=== PATIENT | male | born 1965 | race Caucasian/White ===

== ENCOUNTER 2018-06-16 09:57 | Emergency (ER) | payer BC, OTHER ==
[2018-06-16 10:14] VITALS: BP 140/94
--- NOTE | 2018-06-16 10:37 | EDM.PDOC ---
ED HPI GENERAL MEDICAL PROBLEM - General Chief Complaint: Genitourinary Problem Stated Complaint: HAD A TURP NOT [place] TO PEE Time Seen by Provider: 06/16/18 10:20 Source of Information: Reports: Patient, Provider History Limitations: Reports: No Limitations - History of Present Illness INITIAL COMMENTS - FREE TEXT/NARRATIVE: 53-year-old male who underwent a TURP procedure one week ago was doing well but after a brief episode of hematuria this morning he developed acute urinary retention and came in fairly uncomfortable. No fevers or chills, no nausea or vomiting. Onset: Sudden Duration: Hour(s): (Over the last few hours) Location: Reports: Abdomen - Related Data Allergies Allergy/AdvReac Type Severity Reaction Status Date / Time No Known Drug Allergies Allergy Unknown Cannot Verified 06/16/18 10:09 Remember Home Meds: Home Meds Albuterol Sulfate [Proair Hfa] 2 puff INH QID PRN 08/10/15 [History] Allopurinol [Zyloprim] 100 mg PO DAILY 08/10/15 [History] Cyclobenzaprine [Flexeril] 10 mg PO BEDTIME PRN 08/10/15 [History] Fluticasone Propionate [Flonase] 2 spray NS BID 08/10/15 [History] Hyoscyamine [Hyomax-SL] 0.125 mg SL Q4HR PRN 08/10/15 [History] Losartan [Cozaar] 50 mg PO DAILY 08/10/15 [History] Montelukast [Singulair] 10 mg PO QPM 08/10/15 [History] Nortriptyline HCl [Pamelor] 50 mg PO DAILY 08/10/15 [History] Simvastatin [Zocor] 40 mg PO BEDTIME 08/10/15 [History] Past Medical History HEENT History: Reports: Impaired Vision, Other (See Below) Other HEENT History: wears contacts Cardiovascular History: Reports: High Cholesterol, Hypertension Respiratory History: Reports: Asthma Genitourinary History: Reports: Prostate Disorder Musculoskeletal History: Reports: Gout - Infectious Disease History Infectious Disease History: Reports: Chicken Pox - Past Surgical History Head Surgeries/Procedures: Reports: None Respiratory Surgical History: Reports: None GI Surgical History: Reports: Cholecystectomy, Colonoscopy, EGD Male Surgical History: Reports: TURP-Transurethral Resection of Prostate Musculoskeletal Surgical History: Reports: None Social & Family History - Family History Family Medical History: Noncontributory - Tobacco Use Smoking Status *Q: Former Smoker Years of Tobacco use: 20 Packs/Tins Daily: 1 Used Tobacco, but Quit: Yes Month/Year Tobacco Last Used: 12/2002 - Caffeine Use Caffeine Use: Reports: Coffee - Recreational Drug Use Recreational Drug Use: No ED ROS GENERAL - Review of Systems Review Of Systems: See Below Constitutional: Denies: Fever, Chills Respiratory: Reports: No Symptoms GI/Abdominal: Reports: Abdominal Pain (Lower abdominal pain from urine retention ) : Reports: Hematuria, Urinary Retention Skin: Reports: No Symptoms Neurological: Reports: No Symptoms ED EXAM, RENAL/ - Physical Exam Exam: See Below Exam Limited By: No Limitations General Appearance: Alert, Moderate Distress (Initially very uncomfortable) Respiratory/Chest: No Respiratory Distress GI/Abdominal: Tender (Very tender with firmness over the lower abdomen and suprapubic area) (Male) Exam: Suprapubic Fullness Neurological: Alert, Oriented Psychiatric: Anxious Skin Exam: Warm, Dry Course - Vital Signs Last Recorded V/S: Last Vital Signs Temp 96.4 F 06/16/18 10:21 Pulse 96 06/16/18 10:21 Resp 16 06/16/18 10:21 BP 140/94 H 06/16/18 10:21 Pulse Ox 95 06/16/18 10:21 - Orders/Labs/Meds Orders: Active Orders 24 hr Category Date Time Status Insert Salas Catheter [Insert Urinary Catheter] [OM.PC] Care 06/16/18 10:45 Ordered Q24H Urinary Catheter Assessment [RC] ASDIRECTED Care 06/16/18 10:36 Active - Re-Assessments/Exams Free Text/Narrative Re-Assessment/Exam: 06/16/18 10:44 A #14 Salas was placed without complication. Almost a liter of klaus urine was released and his symptoms resolved and he felt much better. I discussed his case with Dr. Pride, his urologist and he recommended the Salas be left in for 24 hours and then remove. Patient will return sooner if obstruction redevelops while the Salas is placed. Departure - Departure Time of Disposition: 11:07 Disposition: Home, Self-Care 01 Condition: Good Clinical Impression: Retention of urine - Discharge Information Instructions: Indwelling Urinary Catheter Care, Adult, [id number] Referrals: Jennifer Cohen MD [Primary Care Provider] - Forms: ED Department Discharge Care Plan Goals: Remove Salas tomorrow morning, return sooner if the obstruction redevelops while the Salas is in place or you develop other concerns. - My Orders Last 24 Hours: My Active Orders 06/16/18 10:36 Urinary Catheter Assessment [RC] ASDIRECTED 06/16/18 10:45 Insert Salas Catheter [Insert Urinary Catheter] [OM.PC] Q24H - Assessment/Plan Last 24 Hours: My Active Orders 06/16/18 10:36 Urinary Catheter Assessment [RC] ASDIRECTED 06/16/18 10:45 Insert Salas Catheter [Insert Urinary Catheter] [OM.PC] Q24H
== END 2018-06-16 11:08 | disposition home or self-care (01) ==
LOC: JP.ED 09:57
DX: R33.9 Retention of urine, unspecified (principal); I10 Essential (primary) hypertension; E78.00 Pure hypercholesterolemia, unspecified; J45.909 Unspecified asthma, uncomplicated; Z79.899 Other long term (current) drug therapy; Z87.891 Personal history of nicotine dependence
CPT/HCPCS: 51702; 99283

== ENCOUNTER 2018-06-17 16:28 | Emergency (ER) | payer BC ==
--- NOTE | 2018-06-17 17:01 | EDM.PDOC ---
ED HPI GENERAL MEDICAL PROBLEM - General Chief Complaint: Genitourinary Problem Stated Complaint: UNABLE TO URINATE Time Seen by Provider: 06/17/18 17:01 Source of Information: Reports: Patient History Limitations: Reports: No Limitations - History of Present Illness INITIAL COMMENTS - FREE TEXT/NARRATIVE: 53-year-old male who we placed a Salas and yesterday after discussing his post procedure urine retention with his urologist. He was to keep the Salas in for one day which he did and took it out this morning, this afternoon he again has developed urinary retention. No hematuria. Onset: Gradual Associated Symptoms: Reports: No Other Symptoms Bladder Pain Score (Numeric/FACES): 9 - Related Data Allergies Allergy/AdvReac Type Severity Reaction Status Date / Time No Known Drug Allergies Allergy Unknown Cannot Verified 06/16/18 10:09 Remember Home Meds: Home Meds Albuterol Sulfate [Proair Hfa] 2 puff INH QID PRN 08/10/15 [History] Allopurinol [Zyloprim] 100 mg PO DAILY 08/10/15 [History] Cyclobenzaprine [Flexeril] 10 mg PO BEDTIME PRN 08/10/15 [History] Fluticasone Propionate [Flonase] 2 spray NS BID 08/10/15 [History] Hyoscyamine [Hyomax-SL] 0.125 mg SL Q4HR PRN 08/10/15 [History] Losartan [Cozaar] 50 mg PO DAILY 08/10/15 [History] Montelukast [Singulair] 10 mg PO QPM 08/10/15 [History] Nortriptyline HCl [Pamelor] 50 mg PO DAILY 08/10/15 [History] Simvastatin [Zocor] 40 mg PO BEDTIME 08/10/15 [History] Past Medical History HEENT History: Reports: Impaired Vision, Other (See Below) Other HEENT History: wears contacts Cardiovascular History: Reports: High Cholesterol, Hypertension Respiratory History: Reports: Asthma Genitourinary History: Reports: Prostate Disorder Musculoskeletal History: Reports: Gout - Infectious Disease History Infectious Disease History: Reports: Chicken Pox - Past Surgical History Head Surgeries/Procedures: Reports: None Respiratory Surgical History: Reports: None GI Surgical History: Reports: Cholecystectomy, Colonoscopy, EGD Male Surgical History: Reports: TURP-Transurethral Resection of Prostate Musculoskeletal Surgical History: Reports: None Social & Family History - Family History Family Medical History: Noncontributory - Caffeine Use Caffeine Use: Reports: Coffee ED ROS GENERAL - Review of Systems Review Of Systems: See Below Constitutional: Denies: Fever, Chills Respiratory: Denies: Shortness of Breath GI/Abdominal: Reports: Abdominal Pain (Due to urinary retention). Denies: Nausea, Vomiting : Reports: Urinary Retention Skin: Reports: No Symptoms ED EXAM, RENAL/ - Physical Exam Exam: See Below Exam Limited By: No Limitations General Appearance: Alert, Mild Distress Respiratory/Chest: No Respiratory Distress GI/Abdominal: Tender (Lower abdomen over the bladder) Course - Vital Signs Last Recorded V/S: Last Vital Signs Temp 97 F 06/17/18 17:12 Pulse 111 H 06/17/18 17:12 Resp 16 06/17/18 17:12 BP 143/86 H 06/17/18 17:12 Pulse Ox 99 06/17/18 17:12 - Orders/Labs/Meds Orders: Active Orders 24 hr Category Date Time Status Insert Salas Catheter [Insert Urinary Catheter] [OM.PC] Care 06/17/18 17:00 Ordered Q24H Urinary Catheter Assessment [RC] ASDIRECTED Care 06/17/18 17:00 Active Meds: Medications Discontinued Medications Generic Name Dose Route Start Last Admin Trade Name Sana PRN Reason Stop Dose Admin Lidocaine HCl 10 ml 06/17/18 17:00 06/17/18 17:14 Xylocaine 2% Jelly MUCMEM 06/17/18 17:01 10 ml ONETIME ONE Administration Lidocaine HCl Confirm 06/17/18 16:59 06/17/18 17:14 Xylocaine 2% Jelly Administered 06/17/18 17:00 Not Given Dose 10 ml .ROUTE .STK-MED ONE - Re-Assessments/Exams Free Text/Narrative Re-Assessment/Exam: 06/17/18 17:24 Salas was replaced, symptoms resolved in another 500 mL of clear urine was released. I recommended the patient keep the Salas in for 2 days, and contact urology over the next 48 hours to discuss options if urine retention recurs. Departure - Departure Time of Disposition: 17:35 Disposition: Home, Self-Care 01 Condition: Good Clinical Impression: Retention of urine - Discharge Information Instructions: Acute Urinary Retention, Male Referrals: Jennifer Cohen MD [Primary Care Provider] - Forms: ED Department Discharge Care Plan Goals: Leave Salas in for 2 full days, and consider contacting urology on Friday to discuss options if urine retention recurs. Return to the emergency room if obstruction occurs while the Salas is in place. - My Orders Last 24 Hours: My Active Orders 06/17/18 17:00 Insert Salas Catheter [Insert Urinary Catheter] [OM.PC] Q24H Urinary Catheter Assessment [RC] ASDIRECTED - Assessment/Plan Last 24 Hours: My Active Orders 06/17/18 17:00 Insert Salas Catheter [Insert Urinary Catheter] [OM.PC] Q24H Urinary Catheter Assessment [RC] ASDIRECTED
[2018-06-17 17:12] VITALS: BP 143/86
[2018-06-17] MEDS: Lidocaine 2% Jelly 10 ML Urojet ONE (17:14)
[2018-06-17] MEDS: Lidocaine 2% Jelly 10 ML Urojet MUCMEM ONE (17:14)
== END 2018-06-17 17:35 | disposition home or self-care (01) ==
LOC: JP.ED 16:28
DX: R33.9 Retention of urine, unspecified (principal); I10 Essential (primary) hypertension; M10.9 Gout, unspecified; Z90.49 Acquired absence of other specified parts of digestive tract; Z79.899 Other long term (current) drug therapy
CPT/HCPCS: 51702; 99283

== ENCOUNTER 2018-06-24 10:59 | Emergency (ER) | payer BC ==
[2018-06-24] MEDS ORDERED: Lidocaine 2% Jelly 10 ML Urojet MUCMEM ONE (11:14)
[2018-06-24 11:35] VITALS: BP 135/91
--- NOTE | 2018-06-24 11:42 | EDM.PDOC ---
ED HPI GENERAL MEDICAL PROBLEM - General Chief Complaint: Genitourinary Problem Stated Complaint: BOWEL ISSUES Time Seen by Provider: 06/24/18 11:20 Source of Information: Reports: Patient History Limitations: Reports: No Limitations - History of Present Illness INITIAL COMMENTS - FREE TEXT/NARRATIVE: 53-year-old male who had a Salas catheter removed yesterday by his urologist was urinating without difficulty every 2 hours up until he went to bed, however this morning when he woke up he again was struggling with urine retention. He came in to have a Salas placed. No fevers or chills. Onset: Unknown/Unsure (Developed outflow obstruction sometime overnight) bladder Pain Score (Numeric/FACES): 9 - Related Data Allergies Allergy/AdvReac Type Severity Reaction Status Date / Time No Known Drug Allergies Allergy Unknown Cannot Verified 06/24/18 11:13 Remember Home Meds: Home Meds Albuterol Sulfate [Proair Hfa] 2 puff INH QID PRN 08/10/15 [History] Allopurinol [Zyloprim] 100 mg PO DAILY 08/10/15 [History] Cyclobenzaprine [Flexeril] 10 mg PO BEDTIME PRN 08/10/15 [History] Fluticasone Propionate [Flonase] 2 spray NS BID 08/10/15 [History] Hyoscyamine [Hyomax-SL] 0.125 mg SL Q4HR PRN 08/10/15 [History] Losartan [Cozaar] 50 mg PO DAILY 08/10/15 [History] Montelukast [Singulair] 10 mg PO QPM 08/10/15 [History] Nortriptyline HCl [Pamelor] 50 mg PO DAILY 08/10/15 [History] Simvastatin [Zocor] 40 mg PO BEDTIME 08/10/15 [History] Past Medical History HEENT History: Reports: Impaired Vision, Other (See Below) Other HEENT History: wears contacts Cardiovascular History: Reports: High Cholesterol, Hypertension Respiratory History: Reports: Asthma Gastrointestinal History: Reports: None Genitourinary History: Reports: Prostate Disorder Musculoskeletal History: Reports: Gout - Infectious Disease History Infectious Disease History: Reports: Chicken Pox - Past Surgical History Respiratory Surgical History: Reports: None GI Surgical History: Reports: Cholecystectomy, Colonoscopy, EGD Male Surgical History: Reports: TURP-Transurethral Resection of Prostate Musculoskeletal Surgical History: Reports: None Social & Family History - Family History Family Medical History: Noncontributory - Tobacco Use Smoking Status *Q: Never Smoker Second Hand Smoke Exposure: No - Caffeine Use Caffeine Use: Reports: Coffee - Recreational Drug Use Recreational Drug Use: No ED ROS GENERAL - Review of Systems Review Of Systems: See Below Constitutional: Denies: Fever Respiratory: Denies: Shortness of Breath GI/Abdominal: Denies: Nausea, Vomiting ED EXAM, RENAL/ - Physical Exam Exam: See Below Exam Limited By: No Limitations General Appearance: Alert, Mild Distress Respiratory/Chest: No Respiratory Distress GI/Abdominal: Tender (Tenderness and fullness) (Male) Exam: Suprapubic Fullness Skin Exam: Warm, Dry Course - Vital Signs Last Recorded V/S: Last Vital Signs Temp 96 F 06/24/18 11:34 Pulse 79 06/24/18 11:34 Resp 16 06/24/18 11:34 BP 135/91 H 06/24/18 11:34 Pulse Ox 94 L 06/24/18 11:34 - Orders/Labs/Meds Orders: Active Orders 24 hr Category Date Time Status Insert Urinary Catheter [OM.PC] Q24H Care 06/24/18 11:15 Ordered Urinary Catheter Assessment [RC] ASDIRECTED Care 06/24/18 11:14 Active Meds: Medications Discontinued Medications Generic Name Dose Route Start Last Admin Trade Name Sana PRN Reason Stop Dose Admin Lidocaine HCl 10 ml 06/24/18 11:14 06/24/18 11:29 Xylocaine 2% Jelly MUCMEM 06/24/18 11:15 10 ml ONETIME ONE Administration - Re-Assessments/Exams Free Text/Narrative Re-Assessment/Exam: 06/24/18 11:40 With the assistance of a Urojet anesthesia a Salas was replaced releasing 800 mL of klaus urine and resolving his retention symptoms. Dr. Jack, his urologist was contacted and he advised leaving the Salas in place and they will schedule a cystogram or some other investigational procedure in the near future. Departure - Departure Time of Disposition: 11:58 Disposition: Home, Self-Care 01 Condition: Good Clinical Impression: Retention of urine - Discharge Information Instructions: Acute Urinary Retention, Male Referrals: Jennifer Cohen MD [Primary Care Provider] - Forms: ED Department Discharge Care Plan Goals: Continue any current medications, leave Salas in place until further instructions from your urologist. - My Orders Last 24 Hours: My Active Orders 06/24/18 11:14 Urinary Catheter Assessment [RC] ASDIRECTED 06/24/18 11:15 Insert Urinary Catheter [OM.PC] Q24H - Assessment/Plan Last 24 Hours: My Active Orders 06/24/18 11:14 Urinary Catheter Assessment [RC] ASDIRECTED 06/24/18 11:15 Insert Urinary Catheter [OM.PC] Q24H
== END 2018-06-24 11:58 | disposition home or self-care (01) ==
LOC: JP.ED 10:59
DX: R33.9 Retention of urine, unspecified (principal); I10 Essential (primary) hypertension; E78.00 Pure hypercholesterolemia, unspecified; J45.909 Unspecified asthma, uncomplicated; Z79.899 Other long term (current) drug therapy
CPT/HCPCS: 51702; 99283

== ENCOUNTER 2022-04-25 08:04 | Emergency (ER) | payer BC, OTHER ==
[2022-04-25 08:26] VITALS: BP 140/86; PULSE 97
[2022-04-25] MEDS ORDERED: Diphtheria,Pertussis(Acell),Tetanus Vaccine 0.5 ML Syringe IM ONE (08:38)
[2022-04-25] MEDS ORDERED: Lidocaine 1% with EPINEPHrine 1:100,000 50 ML MDV SUBCUT STA (08:38)
[2022-04-25] MEDS ORDERED: Bacitracin Oint 1 GM U/D Packet TOP ONE (08:38)
[2022-04-25] MEDS ORDERED: Ondansetron 4 MG Tab.DIS PO ONE (08:38)
== END 2022-04-25 09:54 | disposition home or self-care (01) ==
LOC: JP.ED 08:04
DX: S01.01XA Laceration without foreign body of scalp, initial encounter (principal); J45.909 Unspecified asthma, uncomplicated; E78.00 Pure hypercholesterolemia, unspecified; I10 Essential (primary) hypertension; M10.9 Gout, unspecified; Z86.16 Personal history of COVID-19; Z72.0 Tobacco use; Z79.899 Other long term (current) drug therapy; Z23 Encounter for immunization; W01.198A Fall on same level from slipping, tripping and stumbling with subsequent striking against other object, initial encounter
CPT/HCPCS: 12002; 90471; 90715; 96372; 99283; J1790; Q0162

== ENCOUNTER 2023-09-04 02:58 | Emergency (ER) | payer OTHER ==
[2023-09-04] MEDS: Ketorolac 30 MG/ML SDV IM ONE (03:16)
[2023-09-04] MEDS: Ketorolac 30 MG/ML SDV ONE (03:20)
[2023-09-04] MEDS ORDERED: Sodium Chloride 0.9% 10 ML Syringe FLUSH PRN (03:31)
[2023-09-04] MEDS: Sodium Chloride 0.9% 1,000 ML IV STA (03:40)
[2023-09-04 03:41] LABS: BASOPHILS ABSOLUTE AUTO 0.04 K/uL (0.00-0.10); BASOPHILS PERCENT AUTO 0.3 % (0.1-1.3); EOSINOPHILS PERCENT AUTO 0.1 % (0.0-5.4); HEMATOCRIT 38.3 % (38.4-49.7); HEMOGLOBIN 14.3 g/dL (12.9-16.9); IMMATURE GRAN ABSOLUTE AUTO 0.04 K/uL (0.00-0.23); IMMATURE GRAN PERCENT AUTO 0.3 % (0.0-0.7); LYMPHOCYTES ABSOLUTE AUTO 2.31 K/uL (0.8-3.3); LYMPHOCYTES PERCENT AUTO 17.5 % (11.4-47.7); MEAN CORPUSCULAR HEMOGLOBIN 32.9 pg (31.6-35.5); MEAN CORPUSCULAR HGB CONC 37.3 g/dL (31.6-35.5); MONOCYTES PERCENT AUTO 6.1 % (3.3-12.6); NEUTROPHILS ABSOLUTE AUTO 9.97 K/uL (1.0-7.6); NEUTROPHILS PERCENT AUTO 75.7 % (40.0-78.1); PLATELET COUNT,PLT 306 K/uL (130-375); RED BLOOD CELL COUNT 4.35 M/uL (4.14-5.76); WHITE BLOOD CELL COUNT,WBC 13.2 K/uL (3.2-11.0)
[2023-09-04] MEDS: HYDROmorphone 1 MG/ML Syringe IVPUSH ONE (03:45)
[2023-09-04] MEDS: Ondansetron 4 MG/2 ML SDV IVPUSH ONE (03:45)
[2023-09-04 04:05] LABS: A/G RATIO 1.3 (1.2-2.2); ALANINE AMINOTRANSFERASE,ALT 58 U/L (12-78); ALBUMIN 4.1 g/dL (3.4-5.0); ALKALINE PHOSPHATASE 74 U/L (46-116); ASPARTATE AMNIOTRANSFERASE,AST 38 U/L (15-37); BILIRUBIN TOTAL 0.8 mg/dL (0.2-1.0); BLOOD UREA NITROGEN,BUN 21 mg/dL (7-18); CALCIUM 8.7 mg/dL (8.5-10.1); CARBON DIOXIDE,CO2 21 mmol/L (21-32); CHLORIDE,CL 101 mmol/L (100-108); CREATININE 1.8 mg/dL (0.8-1.3); EST CRCL DRUG DOSING (CG) 41.82 mL/min; ESTIMATED GFR 43 mL/min (>60); GLUCOSE RANDOM 195 mg/dL (74-106); POTASSIUM,K 3.6 mmol/L (3.6-5.2); PROTEIN TOTAL,TP 7.3 g/dL (6.4-8.2); SODIUM,NA 135 mmol/L (140-148)
[2023-09-04 04:07] LABS: EOSINOPHILS ABSOLUTE AUTO 0.01 K/uL (0.00-0.40)
[2023-09-04 04:08] LABS: ANION GAP 16.6 mmol/L (5.0-14.0)
[2023-09-04] MEDS: Sodium Chloride 0.9% 1,000 ML IV SCH (04:30)
[2023-09-04] MEDS: droPERidol 5 MG/2 ML SDV IVPUSH ONE (04:39)
[2023-09-04] MEDS: Iopamidol 612 MG/ML 100 ML Bottle IV STA (05:05)
[2023-09-04] MEDS: Sodium Chloride 0.9% 80 ML IV STA (05:05)
[2023-09-04 06:17] LABS: APPEARANCE,URINE CLEAR (CLEAR); BILIRUBIN,URINE NEGATIVE (NEGATIVE); COLOR,URINE YELLOW (YELLOW); GLUCOSE,URINE 100 mg/dL (NEGATIVE); KETONES,URINE TRACE mg/dL (NEGATIVE); LEUKOCYTE ESTERASE,URINE NEGATIVE (NEGATIVE); NITRITE,URINE NEGATIVE (NEGATIVE); OCCULT BLOOD,URINE MODERATE (NEGATIVE); PH,URINE 6.5 (5.0-8.0); PROTEIN,URINE NEGATIVE (NEGATIVE); UROBILINOGEN,URINE 0.2 EU/dL (0.2-1.0)
[2023-09-04 06:37] LABS: AMORPHOUS SEDIMENT,URINE NOT SEEN; BACTERIA,URINE FEW; EPITHELIAL CELLS,URINE FEW; MUCUS,URINE NOT SEEN; RBC,URINE 20-30 (0-5)
[2023-09-04] MEDS: cefTRIAXone 2 GM in Sodium Chloride 0.9% 50 ML IV ONE (06:51)
[2023-09-04 07:16] VITALS: BP 151/81; PULSE 91
== END 2023-09-04 09:52 ==
LOC: JP.ED 02:58
DX: N12 Tubulo-interstitial nephritis, not specified as acute or chronic (principal); N13.9 Obstructive and reflux uropathy, unspecified; R74.02 Elevation of levels of lactic acid dehydrogenase [LDH]; I10 Essential (primary) hypertension; E78.00 Pure hypercholesterolemia, unspecified; J45.909 Unspecified asthma, uncomplicated; Z86.16 Personal history of COVID-19
CPT/HCPCS: 36415; 74177; 80053; 81001; 83605; 83690; 84145; 84484; 85025; 87040; 87086; 96361; 96365; 96372; 96375; 99285; 99285-25; J0696; J1170; J1790; J1885; J2405; J3490; J7030; Q9967

== ENCOUNTER 2024-09-02 06:25 | Day surgery (SDC) | payer OTHER ==
[2024-09-02] MEDS ORDERED: fentaNYL 100 MCG/2 ML SDV ONE (07:05)
[2024-09-02] MEDS ORDERED: Propofol 200 MG/20 ML SDV ONE (07:05)
[2024-09-02] MEDS ORDERED: Midazolam 1 MG/ML 2 ML SDV ONE (07:05)
[2024-09-02] MEDS: Lactated Ringers 1,000 ML IV SCH (07:10)
[2024-09-02 09:12] VITALS: BP 137/76; PULSE 69
== END 2024-09-02 08:55 | disposition home or self-care (01) ==
LOC: JP.SDS 06:25
PROVIDERS: ATTEND Surgery
DX: K31.7 Polyp of stomach and duodenum (principal); J45.909 Unspecified asthma, uncomplicated; I10 Essential (primary) hypertension; E78.2 Mixed hyperlipidemia; K21.9 Gastro-esophageal reflux disease without esophagitis; Z79.899 Other long term (current) drug therapy
CPT/HCPCS: 00731; 43239; J2250; J2704; J3010; J7120